=== PATIENT | female | born 2000 | race Caucasian/White ===

== ENCOUNTER → 2023-12-10 08:41 | Outpatient (REF) | payer OTHER, SELFPAY | LOC: WDC 08:41 | PROVIDERS: ATTENDING PHYSICIAN Nurse Practitioner Adult Health; FAMILY PHYSICIAN Family Medicine | DX: N63.20 Unspecified lump in the left breast, unspecified quadrant (principal) | CPT/HCPCS: 76642 ==

== ENCOUNTER 2024-10-30 20:47 | Emergency (ER) | payer MEDICAID, SELFPAY ==
[2024-10-30 20:48] VITALS: BP 140/100
[2024-10-30 21:08] LABS: % Basophils 0.9 % (0-2); % Eosinophils 3.7 % (0-6); % Immature Granulocytes 0.3 % (0-0.5); % Lymphocytes 10.6 % (20.5-51.1); % Monocytes 6.3 % (1.7-9.3); % Neutrophils 78.2 % (42.2-75.2); Absolute Basophils 0.1 10^3/uL (0-0.2); Absolute Eosinophils 0.3 10^3/uL (0-0.7); Absolute Lymphocytes 0.8 10^3/uL (1.2-3.4); Absolute Monocytes 0.5 10^3/uL (0.1-0.6); Absolute Neutrophils 5.9 10^3/uL (1.4-6.5); Hematocrit 41.4 % (37.0-47.0); Hemoglobin 14.4 g/dL (12.0-16.0); Mean Corp Hgb Conc. 34.8 g/dL (33.0-37.0); Mean Corpuscular Hgb 32.6 pg (27.0-31.0); Mean Corpuscular Volume 93.7 fL (81.0-99.0); Mean Platelet Volume 9.2 fL (7.4-10.4); Nucleated Red Blood Cells % 0 %; Platelet Count 269 10^3/uL (130-400); Red Blood Cell Count 4.42 10^6/uL (4.20-5.40); Red Cell Dist. Width 11.8 % (11.5-14.5); White Blood Cell Count 7.5 10^3/uL (4.8-10.8)
[2024-10-30 21:26] LABS: COVID-19 Antigen Negative (Negative)
[2024-10-30 21:29] LABS: ALT (SGPT) 19 U/L (0-35); AST (SGOT) 26 U/L (14-36); Alkaline Phosphatase 64 U/L (38-126); Blood Urea Nitrogen 7 mg/dl (7-17); Calcium 9.6 mg/dl (8.4-10.2); Carbon Dioxide 22 mmol/L (22-30); Chloride 104 mmol/L (98-107); Glucose 101 mg/dl (70-99); Potassium 3.9 mmol/L (3.5-5.1); Sodium 138 mmol/L (135-145); Total Bilirubin 1.1 mg/dl (0.2-1.3); Total Protein 7.5 g/dl (6.3-8.2); eGFR > 60.00
[2024-10-30] MEDS: DUONEB 3 ML INH ×2 (21:37→23:45)
--- NOTE | 2024-10-30 23:13 | ED.GENMED ---
History of Present Illness
General
Chief Complaint: Breathing Problem
Time Seen by Provider: 10/30/24 23:13
History of Present Illness
History of Present Illness:
TIME OF INITIAL ENCOUNTER: 11:15 PM
HPI: The patient presents due to chest discomfort and shortness of breath. She has a history of asthma. She no longer smokes. She was at work when she started having trouble breathing. This feels similar to prior episodes of asthma. She does
take a rescue inhaler as well as Symbicort. She has had pneumonia in the past. She still has some ongoing tightness sensation.
EXAM:
GENERAL: Well appearing in no distress
HEENT: Moist oral mucosa
CARDIOVASCULAR: No murmurs, normal heart rate, regular rhythm, No chest wall tenderness
PULMONARY: No respiratory distress, speaking in full sentences, no accessory muscle use however she does have wheeze heard more anteriorly and slightly decreased equally
ABDOMEN: Soft with no peritoneal signs, no tenderness
NEUROLOGIC: Excellent strength all extremities, no coordination deficits
PSYCHIATRIC: Appropriate mental status, normal insight and judgement
EXTREMITIES: Nontender, no edema, moves all extremities equally
SKIN: No rash, no lesions
NUMBER AND COMPLEXITY OF PROBLEMS ADDRESSED AT THE ENCOUNTER
� Chronic conditions affecting care: Asthma, anxiety, smoker
� Acute Exacerbation and/or Progression of Chronic Illness: This is an acute problem
� Differential Diagnosis includes: Acute active exacerbation, viral syndrome, reactive airway disease, doubt pneumonia
AMOUNT AND/OR COMPLEXITY OF DATA TO BE REVIEWED AND ANALYZED
� I performed an independent evaluation of and my interpretation is:
EKG:
CT:
X-rays: I personally reviewed chest x-ray and see no clear sign of pneumonia
Laboratory Studies: White count and hemoglobin are normal, chemistries unremarkable, COVID-negative, flu negative
Other:
� Review of other/old records: I reviewed records, the patient was diagnosed with pneumonia in November
� Clinical information was obtained by an independent historian: I spoke to the boyfriend at bedside
� Prescriptions/Medications Considered but not given: No clear indication for antibiotic
� Further testing considered but not performed:
RISK OF COMPLICATIONS AND/OR MORBIDITY OR MORTALITY OF PATIENT MANAGEMENT
� Social determinants of health affecting care:
� Discussion with other providers:
� Escalation of care including admission/observation vs risk of discharge considered: Labs and imaging unremarkable
ANY OTHER UPDATES:
12 AM: I reassessed patient. She feels markedly improved. She no longer has a wheeze. She has no increased work of breathing at time of discharge. Will continue short course of steroids.
Past History
Past History
ED Past Medical History: Asthma and Psychiatric
ED Past Surgical History: Orthopedic and Other (lip)
Social History
Tobacco: Former smoker
Alcohol: Occasional
Drug: None
Personal: Single
Living: with family
Phy Exam
Physical Exam
Physical Exam:
See HPI
Sepsis
Sepsis Screening
Sepsis Assessment: Sepsis Ruled Out
Sepsis Screen
Sepsis Screen: Sepsis Ruled Out
Date: 10/31/24
Time: 00:10
Course
Orders/Labs/Results
Orders:
Orders
10/30/24 20:52
Electrocardiogram (*1) Urgent
Reason for Study: Shortness of Breath
EKG- Treatment ONCE
CR Chest - 2 Views Urgent
Comment:
Reason For Exam: shortness of breath
10/30/24 21:02
COVID-19 Antigen Urgent
Source: Nasal Swab
Complete Blood Count/With Diff Urgent
Comprehensive Metabolic Panel Urgent
Influenza A+B Rapid Molecular Urgent
FRANKO Source: Nasal Swab
Specimen Description:
10/30/24 21:37
Ipratropium/Albuterol Sulfate [Duoneb] 3 ml INH R NOW ONE
10/30/24 23:22
Ipratropium/Albuterol Sulfate [Duoneb] 3 ml INH R NOW ONE
Prednisone [Deltasone] 50 mg PO NOW STA
Abnormal Lab Results
10/30/24
21:02
MCH 32.6 H pg
(27.0-31.0)
Absolute Lymphs (auto) 0.8 L 10^3/uL
(1.2-3.4)
Neutrophils % 78.2 H %
(42.2-75.2)
Lymphocytes % 10.6 L %
(20.5-51.1)
Glucose 101 H mg/dl
(70-99)
10/30/24 21:02
10/30/24 21:02
Vital Signs
Initial and Last Documented VS:
Initial Vital Signs
Temp Pulse Resp BP Pulse Ox
36.7 C 129 30 140/100 99
10/30/24 20:48 10/30/24 20:48 10/30/24 20:48 10/30/24 20:48 10/30/24 20:48
Last Documented Vital Signs
Temp Pulse Resp BP Pulse Ox
36.7 C 129 30 140/100 99
10/30/24 20:48 10/30/24 20:48 10/30/24 20:48 10/30/24 20:48 10/30/24 20:48
*Critical Care Note
Total Time (30-74mins, 75-104mins- exclusive of procedures): Not Applicable
ED Attending Note
-
Portions of this chart may have been created with voice recognition software.� Occasional wrong word or��sound alike� substitutions may have occurred due to the inherent limitations of voice recognition software.
Discharge Plan
Departure
Patient Disposition: Home (Routine Discharge)
Date of Disposition: 10/31/24
Time of Disposition: 00:05
Patient with high blood pressure during this ER visit?: Yes
Discharge Problem:
Acute asthma exacerbation
Instructions: Asthma, Adult (DC), BLOOD PRESSURE
Prescriptions:
New
prednisone 50 mg tablet
50 mg PO DAILY Qty: 4 0RF
No Action
montelukast 10 MG tablet
10 mg PO DAILY
budesonide-formoterol [Symbicort] 1 PUFF HFA aerosol inhaler
2 puff inhalation R BID
albuterol sulfate 2.5 MG/3 ML solution for nebulization
2.5 mg inhalation R Q4HPRN PRN (Reason: SOB)
prednisone 50 MG tablet
50 mg PO DAILY Qty: 5 0RF
levofloxacin 500 MG tablet
500 mg PO DAILY Qty: 5 0RF
Referrals:
Alexus Hermosillo CRNP [Family Provider] -
Activity Restrictions/Additional Instructions:
Basic blood work is normal. COVID and flu tests are negative. We gave you 2 DuoNeb's and gave you first dose of prednisone 50 mg. I sent a prescription for 4 additional days of prednisone to your pharmacy. You can take next dose on Friday
morning. Continue your albuterol as needed. Return here if worse or other concerns.
Interventions
Interventions:
*Risk Screen - Suicide Last Done: 10/30/24 23:47
*General Assessment Last Done: 10/30/24 23:47
*Neglect/Abuse Screening Last Done: 10/30/24 23:47
ED- Fall Risk Assessment Last Done: 10/30/24 23:47
*ED COVID-19 Vaccine History Last Done: 10/30/24 23:47
Discharge Date and Time
Print Language: SPANISH
[2024-10-30] MEDS: DELTASONE 50 MG PO (23:45)
[2024-10-31 00:13] VITALS: BP 132/89
== END 2024-10-31 00:17 | disposition home or self-care (01) ==
LOC: EMR 20:47
PROVIDERS: Emergency Medicine; EMERGENCY PHYSICIAN Emergency Medicine; FAMILY PHYSICIAN Nurse Practitioner Family
DX: J45.901 Unspecified asthma with (acute) exacerbation (principal); Z11.52 Encounter for screening for COVID-19; R03.0 Elevated blood-pressure reading, without diagnosis of hypertension; Z87.891 Personal history of nicotine dependence; Z87.01 Personal history of pneumonia (recurrent); Z88.5 Allergy status to narcotic agent; Z91.018 Allergy to other foods; Z91.048 Other nonmedicinal substance allergy status
CPT/HCPCS: 99284; 94640 ×2; 71046; 80053; 85025; 87502; 87811; 93005

== ENCOUNTER 2025-08-08 16:51 | Emergency (ER) | payer OTHER, SELFPAY ==
[2025-08-08 17:04] VITALS: BP 117/101
[2025-08-08 17:28] LABS: Hematocrit 45.1 % (37.0-47.0); Hemoglobin 15.0 g/dL (12.0-16.0); Mean Corp Hgb Conc. 33.3 g/dL (33.0-37.0); Mean Corpuscular Volume 99.1 fL (81.0-99.0); Nucleated Red Blood Cells % 0 %; Platelet Count 265 10^3/uL (130-400); Red Cell Dist. Width 12.1 % (11.5-14.5)
[2025-08-08 17:54] LABS: ALT (SGPT) 21 U/L (0-35); AST (SGOT) 23 U/L (14-36); Albumin 5.2 g/dl (3.5-5.0); Alkaline Phosphatase 51 U/L (38-126); Blood Urea Nitrogen 6 mg/dl (7-17); Calcium 9.5 mg/dl (8.4-10.2); Carbon Dioxide 20 mmol/L (22-30); Chloride 108 mmol/L (98-107); Glucose 96 mg/dl (70-99); Potassium 4.3 mmol/L (3.5-5.1); Sodium 138 mmol/L (135-145); Total Protein 8.1 g/dl (6.3-8.2); Troponin I < 0.012 ng/ml; eGFR > 60.00
[2025-08-08] MEDS: DECADRON 10 MG PO (18:25)
[2025-08-08] MEDS: DUONEB 3 ML INH (18:25)
--- NOTE | 2025-08-08 18:59 | ED.GENMED ---
History of Present Illness
General
Chief Complaint: Breathing Problem
Time Seen by Provider: 08/08/25 18:05
History of Present Illness
History of Present Illness:
25-year-old female with history of moderate persistent asthma presents to the emergency department for evaluation of chest tightness and a sore throat began yesterday after being in a music festival. She has been using albuterol Recently without
improvement. Reports dry coughing, denies fevers or chills. No leg swelling or calf cramping
Past History
Past History
ED Past Medical History: Asthma and Psychiatric
ED Past Surgical History: Orthopedic and Other (lip)
Social History
Tobacco: Former smoker
Alcohol: Occasional
Drug: None
Personal: Single
Living: with family
Review of Systems
Review of Systems
Allergies reviewed?: Yes
All Other Systems: ROS reviewed and negative except as documented in HPI and ROS
Phy Exam
Physical Exam
Physical Exam:
GEN: Well appearing, NAD, WDWN
HEENT: Oral mucosa moist, no scleral icterus
Cardiac: Tachycardic, regular
Lung: Tachypnea, audible stridor, no obvious wheezes or rales on auscultation
MSK: No gross deformity or injuries
Skin: Good color, no pallor or jaundice, no rashes
Neuro: AO x3, moves all extremities freely
Psych: Calm, cooperative
Course
Orders/Labs/Results
Orders:
Orders
08/08/25 17:09
Electrocardiogram (*1) Urgent
Reason for Study: Chest Pain
08/08/25 17:10
EKG- Treatment ONCE
Chest [CR Chest - 2 Views ] Urgent
Comment:
Reason For Exam: chest pain
08/08/25 17:23
CMP [Comprehensive Metabolic Panel] Urgent
Complete Blood Count/With Diff Urgent
Troponin I Urgent
08/08/25 18:09
Dexamethasone Pf [Decadron] 10 mg PO NOW STA
Ipratropium/Albuterol Sulfate [Duoneb] 3 ml INH R NOW STA
Abnormal Lab Results
08/08/25
17:23
MCV 99.1 H fL
(81.0-99.0)
MCH 33.0 H pg
(27.0-31.0)
Absolute Lymphs (auto) 0.7 L 10^3/uL
(1.2-3.4)
Lymphocytes % 11.8 L %
(20.5-51.1)
Eosinophils % 7.7 H %
(0-6)
Chloride 108 H mmol/L
(98-107)
Carbon Dioxide 20 L mmol/L
(22-30)
BUN 6 L mg/dl
(7-17)
Albumin 5.2 H g/dl
(3.5-5.0)
08/08/25 17:23
08/08/25 17:23
Vital Signs
Initial and Last Documented VS:
Initial Vital Signs
Temp Pulse Resp BP Pulse Ox
98.3 F 109 18 117/101 99
08/08/25 17:04 08/08/25 17:04 08/08/25 17:04 08/08/25 17:04 08/08/25 17:04
Last Documented Vital Signs
Temp Pulse Resp BP Pulse Ox
98.3 F 109 18 117/101 99
08/08/25 17:04 08/08/25 17:04 08/08/25 17:04 08/08/25 17:04 08/08/25 19:01
MDM/Problems Addressed
MDM/Problems Addressed:
Patient symptoms improved after neb treatment, will treat as asthma exacerbation she was noted to have mild stridor and no audible wheezes, regardless steroids will be of benefit to her, chest x-ray clear, no indication for antibiotics
Comment
Comment:
EKG independently interpreted by me shows a sinus tachycardia with no ST changes concerning for ischemia
Chest x-ray independently interpreted by me is negative for acute disease
*Pulse Oximetry
SaO2: 99
Oxygen Mode of Delivery: Room air
Patient hypoxic: no
*Critical Care Note
Total Time (30-74mins, 75-104mins- exclusive of procedures): Not Applicable
ED Attending Note
-
Portions of this chart may have been created with voice recognition software.� Occasional wrong word or��sound alike� substitutions may have occurred due to the inherent limitations of voice recognition software.
Discharge Plan
Departure
Patient Disposition: Home (Routine Discharge)
Date of Disposition: 08/08/25
Time of Disposition: 19:04
Patient with high blood pressure during this ER visit?: No
Discharge Problem:
Asthma exacerbation
Instructions: Asthma, Adult (DC)
Prescriptions:
New
albuterol sulfate 2.5 mg /3 mL (0.083 %) solution for nebulization
2.5 mg inhalation Q6H Qty: 90 0RF
methylprednisolone [Medrol (Flavio)] 4 mg tablets,dose pack
See Rx Instructions .ROUTE .COMPLEX Qty: 21 0RF
Rx Instructions:
orally per package directions
No Action
montelukast 10 MG tablet
10 mg PO DAILY
budesonide-formoterol [Symbicort] 1 PUFF HFA aerosol inhaler
2 puff inhalation R BID
albuterol sulfate 2.5 MG/3 ML solution for nebulization
2.5 mg inhalation R Q4HPRN PRN (Reason: SOB)
prednisone 50 MG tablet
50 mg PO DAILY Qty: 5 0RF
levofloxacin 500 MG tablet
500 mg PO DAILY Qty: 5 0RF
prednisone 50 mg tablet
50 mg PO DAILY Qty: 4 0RF
Discharge Date and Time
Print Language: LAO
[2025-08-08 19:08] VITALS: BP 127/89
== END 2025-08-08 19:17 | disposition home or self-care (01) ==
LOC: EMR 16:51
PROVIDERS: Emergency Medicine; EMERGENCY PHYSICIAN Emergency Medicine; FAMILY PHYSICIAN Student in an Organized Health Care Education/Training Program
DX: J45.41 Moderate persistent asthma with (acute) exacerbation (principal); Z87.891 Personal history of nicotine dependence
CPT/HCPCS: 99284; 94640; 71046; 80053; 84484; 85025